=== PATIENT | male | born 1935 | race Caucasian/White ===

== ENCOUNTER 2017-04-22 13:50 | Emergency (ER) | payer OTHER ==
[2017-04-22 13:58] VITALS: TEMP 98.6; BMI 32.5
--- NOTE | 2017-04-22 14:19 | PDOC ---
Attending Attestation - Resident Resident Name: Maxine Rod - HPI HPI: 04/22/17 15:59 81 y/o male with h/o dementia seen and examined at bedside with his son who provided the majority of the history, Pt was able to communicate his needs and contributed to the conversation. Pt has a history of lower extremity edema has had carlos stockings in the past does not like them so he did not use them. Over the last month legs have become more swollen and today he thought the swelling was affecting hos ability to ambulate so he brought him to the ED. PT not sob, no calf tenderness, no c/o chest pain, - Physicial Exam PE: 04/22/17 16:04 Pt is awake and alert cooperative with exam, pt with + bs veronika cta, nl s1 s2, abd large + bs , no abdominal pain, leg veronika leg edema to just below the knees, 2 -3 + pitting edema with vascular changes bilaterally, nl pulses, o calf tenderness and nl sensation - Medical Decision Making 04/22/17 16:06 Pt with edema of legs most like secondary to venous insufficinecy and immobility , labs noted and nl, pt stable for dc home with out ot f/u with pcp, pt will be given short trial of lasix 10mg daily x 5 days and will f/u with pcp for electrolyte testing, and possibly carlos stockings, pt to return to ED for trouble breathing , sob or as needed. PT and son agree with this dc plan
--- NOTE | 2017-04-22 14:28 | PDOC ---
History of Present Illness - General Chief Complaint: Edema Stated Complaint: SWOLLEN LEGS Time Seen by Provider: 04/22/17 14:19 History Source: Patient, Family Exam Limitations: Dementia, Language Barrier - History of Present Illness Initial Comments: 04/22/17 14:49 81 year old male with PMH of progressively worsening dementia, CVA (25 years ago ), and Non-insulin dependent diabetes presenting with one month of bilateral lower extremity swelling. He has had this progressive bilateral lower extremity edema that all began one month ago in the setting of worsening ambulatory function thought to be progression of his dementia. He has tried compression stockings that have provided improvement of swelling but were cumbersome so he stopped. He does admit to shortness of breath but this has been consistent over the past year or so. Denies chest pain, palpitations, frothy sputum, productive cough, or decreased urination. He has no cardiac history and is not a hypertensive and is not on a diuretic. His diet is also quite poor, with frquent ingestion of sugary and salty foods. Denies fevers, chills, nausea, vomiting, diarrhea, or other sick symptoms. Does have occasional bowel/bladder incontinence. He lives at home wiht his and son who take care of his medications and assist him with his daily activities. His PCP is Dr. Luana Delvalle at [facility]. Past History - Past Medical History Allergies/Adverse Reactions: Allergies Allergy/AdvReac Type Severity Reaction Status Date / Time iodine Allergy Verified 04/22/17 13:52 Home Medications: Ambulatory Orders Cholecalciferol (Vitamin D3) [D-2000] 2,000 unit PO DAILY 04/22/17 Dutasteride 0.5 mg PO DAILY 04/22/17 Furosemide [Lasix] 10 mg PO DAILY #5 tablet 04/22/17 Metformin HCl [Glucophage] 1,000 mg PO BID 04/22/17 Multivit-Min/FA/Lycopen/Lutein [Centrum Silver Tablet] 1 each PO DAILY 04/22/17 Sitagliptin Phosphate [Januvia] 25 mg PO DAILY 04/22/17 Trazodone HCl 50 mg PO HS 04/22/17 CVA: Yes Dementia: Yes Diabetes: Yes (niddm) HTN: Yes Psychiatric Problems: Yes (anxeity) Other medical history: BPH - Surgical History Abdominal Surgery: Yes (ING HERNIA) - Psycho/Social/Smoking Cessation Hx Anxiety: No Suicidal Ideation: No Smoking History: Never smoked Have you smoked in the past 12 months: No Information on smoking cessation initiated: No Hx Alcohol Use: No Drug/Substance Use Hx: No Substance Use Type: None Review of Systems - Review of Systems Able to Perform ROS?: Yes Constitutional: Yes: Weakness (Weakess in LE bilaterally over the past few years.). No: Chills, Diaphoresis, Fever, Loss of Appetite HEENTM: No: Nose Congestion, Throat Pain, Throat Swelling Respiratory: Yes: Shortness of Breath, SOB with Exertion. No: Cough, Orthopnea , Stridor, Wheezing, Productive cough Cardiac (ROS): Yes: Edema. No: Chest Pain, Lightheadedness, Syncope, Chest Tightness ABD/GI: Yes: Diarrhea (Occassional diarrhea). No: Abdominal Distended, Constipated, Nausea, Poor Appetite, Vomiting : Yes: Incontinence (Bowel/ bladder incontinence) Musculoskeletal: No: Back Pain, Joint Pain Integumentary: No: Bruising, Change in Color, Erythema, Lesions Neurological: Yes: Unsteady Gait. No: Headache, Numbness, Paresthesia *Physical Exam - Vital Signs Last Vital Signs Temp Pulse Resp BP Pulse Ox 98.6 F 71 18 143/77 98 04/22/17 13:54 04/22/17 13:54 04/22/17 13:54 04/22/17 13:54 04/22/17 13:54 - Physical Exam General Appearance: Yes: Appropriately Dressed. No: Apparent Distress HEENT: positive: EOMI, ANN, Normal ENT Inspection, Normal Voice. negative: Pharyngeal Erythema, Tonsillar Exudate Neck: positive: Normal Thyroid Respiratory/Chest: positive: Lungs Clear, Normal Breath Sounds. negative: Chest Tender, Respiratory Distress, Accessory Muscle Use, Crackles, Rales, Rhonchi, Stridor, Wheezing Cardiovascular: positive: Regular Rhythm, Regular Rate, Edema (Blaterl lower extremity 2+ to upper shins), Other (Difficult to auscultate heart sounds). negative: JVD, Murmur, Gallop/S3 Gastrointestinal/Abdominal: positive: Normal Bowel Sounds, Flat, Soft. negative : Tender, Organomegaly, Pulsatile Mass Extremity: positive: Normal Capillary Refill, Pedal Edema, Swelling. negative: Tender ED Treatment Course - LABORATORY CBC & Chemistry Diagram: 04/22/17 15:00 04/22/17 15:00 Medical Decision Making - Medical Decision Making 04/22/17 15:10 88 year old with history of NIDD, dementia, and remote CVA presenting with blateral lower extremity edema x 1 month. Most likely chronic venous insufficiency exacerbated by lack of movement secondary to worsening dementia. Less likely heart failure, given lack of significant cardiac history, crackles, JVD, or apparent S3. Not likely DVT as patient has no calf tenderness and is SATing well on RA without chest pain. Furthermore, presentation of bilateral DVTs is exceedingly rare. Not likely acute coronary syndrome given normal EKG. Will get CBC, BMP, BNP, and CXR. 04/22/17 15:56 Labs significant for slight anemia at 10.9 most likely due to nutritional deficiency. BMP WNL. BNP WNL. This is most likely chronic venous insufficiency as discussed above. Will give one dose of lasix inpatient and send home on 10 PO lasix QD x 5 days with close PCP follow up this week for med adjustment and creatinine/ K+ monitoring. 04/22/17 16:03 *DC/Admit/Observation/Transfer Diagnosis at time of Disposition: Edema of both lower legs due to peripheral venous insufficiency - Discharge Dispostion Disposition: HOME Condition at time of disposition: Improved Admit: No - Prescriptions Prescriptions: Furosemide [Lasix] 10 mg PO DAILY #5 tablet - Referrals Referrals: STAFF,NOT ON [Primary Care Provider] - - Patient Instructions Printed Discharge Instructions: Chronic Venous Insufficiency Additional Instructions: You were sen for swelling in your legs. We don't believe it was due to your heart. Our blood tests did not show anything too concerning. You should use the water pill as we have prescribed for five days until you see your primary care physician. These pills can lower your potassium or cause damage to your kidneys so it is important to have your blood labs evaluated and monitor your response to the medications. Please use the compression stockings as directed. Please see your PCP within 5 days. Print Language: CROATIAN - Attestations Physician Attestion: 04/22/17 16:07 I, Dr. Maxine Rod, attest that this document has been prepared under my direction and personally reviewed by me in its entirety. I further attest, that it accurately reflects all work, treatment, procedures and medical decision -making performed by me.
[2017-04-22 15:16] LABS: MCH 28.8 pg (25.7-33.7); MCHC 32.6 g/dl (32.0-35.9); MEAN CELL VOLUME 88.3 fl (80-96); MEAN PLT VOLUME 8.2 fl (7.5-11.1); PLATELET COUNT 172 K/MM3 (134-434); RDW 13.5 % (11.9-15.9); WHITE BLOOD COUNT 4.1 K/mm3 (4.0-10.0)
[2017-04-22 15:48] LABS: ANION GAP 6 (8-16); CALCIUM 9.2 mg/dL (8.5-10.1); CO2 31 mmol/L (21-32); CREATININE 1.1 mg/dL (0.7-1.3); GLUCOSE,RANDOM 185 mg/dL (74-106)
[2017-04-22 16:13] VITALS: BP 158/86; PULSE 61
--- NOTE | 2017-04-24 13:52 | EKG ---
Test Reason : Blood Pressure : / mmHG Vent. Rate : 069 BPM Atrial Rate : 069 BPM P-R Int : 216 ms QRS Dur : 082 ms QT Int : 352 ms P-R-T Axes : 035 -09 018 degrees QTc Int : 377 ms SINUS RHYTHM WITH 1ST DEGREE A-V BLOCK CANNOT RULE OUT INFERIOR INFARCT , AGE UNDETERMINED ABNORMAL ECG NO PREVIOUS ECGS AVAILABLE Confirmed by JAKE PARIKH MD ([id number]) on 04/24/2017 1:51:37 PM Referred By: Confirmed By:JAKE PARIKH MD
== END 2017-04-22 16:58 | disposition home or self-care (01) ==
LOC: JER 13:50
DX: R60.9 Edema, unspecified (principal); I87.2 Venous insufficiency (chronic) (peripheral); I10 Essential (primary) hypertension; E11.9 Type 2 diabetes mellitus without complications; Z79.84 Long term (current) use of oral hypoglycemic drugs; F41.9 Anxiety disorder, unspecified; N40.0 Benign prostatic hyperplasia without lower urinary tract symptoms; Z86.73 Personal history of transient ischemic attack (TIA), and cerebral infarction without residual deficits
CPT/HCPCS: 36415; 71010-TC; 80048; 83880; 85027; 93005; 93010; 99283-25

== ENCOUNTER 2017-12-04 14:08 | Emergency (ER) | payer OTHER ==
[2017-12-04 14:38] VITALS: TEMP 97.4; BMI 28.2
--- NOTE | 2017-12-04 14:59 | PDOC ---
Attending Attestation - HPI HPI: 12/04/17 16:09 The patient is a 82 year old male with a significant PMH of HTN, dementia, NIDDM , and CVA (10 years ago) who presents to the emergency department with dehydration, lightheadedness, and hypotension. The history was provided by family members at bedside. As per the family, the patient has not been eating or drinking for the past few days secondary to his constipation. The patient went to the bathroom today and was noted to be lightheaded, clammy, and diaphoretic prompting the family to activate EMS. EMS notes the patient was hypotensive to the 80s systolic. The family is also stating the patient has been more confused than baseline over the past few days. The patient denies chest pain, shortness of breath, headache and dizziness. Denies fever, chills, nausea, vomit, and diarrhea. Denies dysuria, frequency, urgency and hematuria. Allergies: iodine Past surgical history: None reported. Social history: No reported alcohol, drug or cigarette use. <Dhara Zuñiga - Last Filed: 12/04/17 16:18> - Resident Resident Name: Rod Ng - ED Attending Attestation I have performed the following: I have examined & evaluated the patient, The case was reviewed & discussed with the resident, I agree w/resident's findings & plan, Exceptions are as noted - Physicial Exam PE: GENERAL: Awake, alert, and oriented to place and person, in no acute distress. HEAD: No signs of trauma EYES: PERRLA, EOMI, sclera anicteric, conjunctiva clear ENT: Auricles normal inspection, hearing grossly normal, nares patent, oropharynx clear without exudates. Dry mucosa NECK: Normal ROM, supple, no lymphadenopathy, JVD, or masses LUNGS: Breath sounds equal, clear to auscultation bilaterally. No wheezes, and no crackles HEART: Regular rate and rhythm, normal S1 and S2, no murmurs, rubs or gallops ABDOMEN: Soft, nontender, normoactive bowel sounds. No guarding, no rebound. No masses EXTREMITIES: Normal range of motion, no edema. No clubbing or cyanosis. No cords, erythema, or tenderness NEUROLOGICAL: Cranial nerves II through XII grossly intact. Normal speech. Sensation and motor intact. SKIN: Warm, Dry, normal turgor, no rashes or lesions noted. - Medical Decision Making Pt appeared dehydrated on initial evaluation, with hypotension that responded to IV fluids. Symptoms may be due to poor PO intake of solids and liquids, however, also will consider [place], sepsis. Sepsis protocol initiated in ED. Plan for admission. <Linda Ware - Last Filed: 12/05/17 11:52>
--- NOTE | 2017-12-04 15:00 | PDOC ---
History of Present Illness - General Chief Complaint: Blood Pressure Problem Stated Complaint: DEHYDRATION Time Seen by Provider: 12/04/17 14:25 - History of Present Illness Initial Comments: 12/04/17 15:40 The patient is an 82 year old male with a history of HTN, HLD, DM, dementia who presents for evaluation of dehydration, lightheadedness, hypotension. The patient is accompanied by his family who assist in providing the history. They report that the patient has been not eating and drinking well over the past few days due to constipation. They noted that he was lightheaded and very sweating when getting up from going to the bathroom today prompting them to call EMS. The patient was noted by EMS to be hypotensive to 80s systolic and he received a liter of iv fluids en rout to the ED. They family also notes that the patient has been somewhat more confused over the past few days as well. The patient has denied any fevers, chills, SOB, chest pain, nausea, vomiting, abdominal pain, or changes with urination. Past History - Past Medical History Allergies/Adverse Reactions: Allergies Allergy/AdvReac Type Severity Reaction Status Date / Time iodine Allergy Verified 12/04/17 14:35 Home Medications: Ambulatory Orders Metformin HCl [Glucophage] 1,000 mg PO BID 04/22/17 Multivit-Min/FA/Lycopen/Lutein [Centrum Silver Tablet] 1 each PO DAILY 04/22/17 Sitagliptin Phosphate [Januvia] 25 mg PO DAILY 04/22/17 Gabapentin 400 mg PO HS 12/04/17 CVA: Yes COPD: No Dementia: Yes Diabetes: Yes (niddm) HTN: Yes Psychiatric Problems: Yes (anxeity, End stage Alzheimer's) - Surgical History Abdominal Surgery: Yes (ING HERNIA) - Suicide/Smoking/Psychosocial Hx Smoking History: Never smoked Have you smoked in the past 12 months: No Information on smoking cessation initiated: No Hx Alcohol Use: No Drug/Substance Use Hx: No Substance Use Type: None Review of Systems - Review of Systems Comments:: 12/04/17 15:47 Constitutional: No fevers, chills, fatigue, malaise HEENT: No Rhinorrhea, nasal congestion, visual changes Cardiovascular: Lightheadedness. No chest pain, syncope, palpitations, Respiratory: No Cough, SOB, Hemoptysis, Gastrointestinal: Constipation. No Abdominal pain, Nausea, Vomiting, Diarrhea, Melena Genitourinary: No Dysuria, Frequency, Urgency, Hesitancy, Hematuria, Flank pain Musculoskeletal: No Myalgia, arthralgia Skin: No rashes, itching, bruising, pallor Neurologic: No Headache, Dizziness, Numbness, Weakness, or Tingling Psychiatric: Confusion. No Hallucinations. No SI or HI *Physical Exam - Vital Signs Last Vital Signs Temp Pulse Resp BP Pulse Ox 97.4 F L 66 19 88/66 97 12/04/17 14:31 12/04/17 14:31 12/04/17 14:31 12/04/17 14:31 12/04/17 14:31 - Physical Exam Comments: 12/04/17 15:48 General Appearance: Nourished. No Apparent Distress HEENT: EOMI, ANN. No Pharyngeal Erythema, Tonsillar Exudate, Tonsillar Erythema Neck: No Cervical Lymphadenopathy Respiratory/Chest: Lungs Clear, Normal Breath Sounds. No Crackles, Rales, Rhonchi, Wheezing Cardiovascular: Regular Rhythm, Regular Rate. No Murmur, Gallops, Rubs Gastrointestinal/Abdominal: Normal Bowel Sounds, Soft. No Guarding, Rebound, Tenderness Musculoskeletal: No CVA Tenderness Extremity: Normal Capillary Refill Integumentary: Normal Color, Dry, Warm Neurologic: Oriented to self only. Alert, Normal Mood/Affect, Normal Response, Heart Score/ECG Review #1 ECG reviewed & interpreted by me at: 15:49 (1st degree AV block) General ECG Interpretation: Sinus Rhythm, Normal Rate, No acute ischemic changes ED Treatment Course - LABORATORY CBC & Chemistry Diagram: 12/04/17 15:29 12/04/17 15:29 Medical Decision Making - Medical Decision Making 12/04/17 15:49 The patient is an 82 year old male with a history of HTN, HLD, DM, dementia who presents for evaluation of dehydration, lightheadedness, hypotension. Differential includes but is not limited to: Sepsis, pneumonia, uti, intracranial process, infectious, metabolic derangement. The patient's bp has improved here in the ED after fluids to 112 systolic. Given the patient's symptoms we will obtain a cbc, cmp, troponin, ekg, lactate, chest plain film, head CT to evaluate for possible etiologies. We will continue to monitor and reassess. 12/04/17 23:38 CBC, cmp, troponin, lactate are unremarkable. Chest plain film and head ct are unremarkable as read by our radiologist. However, we believe the patient requires admission for further management given his hypotension and lightheadedness episode. We discussed the case with Dr. Goldberg who accepted the patient for admission. *DC/Admit/Observation/Transfer Diagnosis at time of Disposition: Altered mental status Qualifiers: Altered mental status type: unspecified Qualified Code(s): R41.82 - Altered mental status, unspecified Hypotension Qualifiers: Hypotension type: unspecified hypotension type Qualified Code(s): I95.9 - Hypotension, unspecified - Discharge Dispostion Condition at time of disposition: Stable Admit: Yes - Referrals - Patient Instructions - Post Discharge Activity
[2017-12-04 16:26] VITALS: BP 122/61; PULSE 81
[2017-12-04 16:49] LABS: BASO % 0.6 % (0-2.0); HEMATOCRIT 37.1 % (35.4-49); HEMOGLOBIN 12.3 GM/dL (11.7-16.9); LYMPH % 18.7 % (8-40); MCH 29.5 pg (25.7-33.7); MCHC 33.1 g/dl (32.0-35.9); MEAN CELL VOLUME 89.1 fl (80-96); MEAN PLT VOLUME 8.3 fl (7.5-11.1); MONO % 6.6 % (3.8-10.2); NEUT % 72.1 % (42.8-82.8); PLATELET COUNT 190 K/MM3 (134-434); RBC 4.17 M/mm3 (4.00-5.60); RDW 13.5 % (11.9-15.9); WHITE BLOOD COUNT 5.7 K/mm3 (4.0-10.0)
[2017-12-04 16:54] LABS: VENOUS PH 7.35 (7.32-7.42)
[2017-12-04 16:55] LABS: VENOUS PC02 48.2 mmHg (38-52); VENOUS PO2 34.5 mmHg (28-48)
[2017-12-04 17:14] LABS: INR 1.08 (0.82-1.09); PROTHROMBIN TIME (PATIENT) 12.2 SEC (9.98-11.88)
[2017-12-04 17:17] LABS: ACTIVATED PTT 33.2 SECONDS (26.9-34.4)
[2017-12-04 17:23] LABS: ALBUMIN 3.1 g/dl (3.4-5.0); ANION GAP 8 (8-16); BILIRUBIN,TOTAL 0.3 mg/dL (0.2-1.0); BLOOD UREA NITROGEN 26 mg/dL (7-18); CALCIUM 8.6 mg/dL (8.5-10.1); CHLORIDE 107 mmol/L (98-107); CO2 26 mmol/L (21-32); CREATININE 1.3 mg/dL (0.7-1.3); GLUCOSE,RANDOM 192 mg/dL (74-106); POTASSIUM 4.5 mmol/L (3.5-5.1); SGOT/AST 10 U/L (15-37); SGPT/ALT 11 U/L (12-78); SODIUM 141 mmol/L (136-145); TOT PROT 6.9 g/dl (6.4-8.2)
[2017-12-04 17:26] LABS: ALK PHOS 93 U/L (45-117)
--- NOTE | 2017-12-04 20:34 | HP ---
Admitting History and Physical - Primary Care Physician PCP: Mariaa Goldberg - Admission Chief Complaint: lightheaded History of Present Illness: -82 year old male with a history of HTN, HLD, DM, dementia who presents for evaluation of dehydration, lightheadedness, hypotension. The patient is accompanied by his family who assist in providing the history. They report that the patient has been not eating and drinking well over the past few days due to constipation. They noted that he was lightheaded and very sweating when getting up from going to the bathroom today prompting them to call EMS. The patient was noted by EMS to be hypotensive to 80s systolic and he received a liter of iv fluids en rout to the ED. They family also notes that the patient has been somewhat more confused over the past few days as well. The patient has denied any fevers, chills, SOB, chest pain, nausea, vomiting, abdominal pain , or changes with urination. - Smoking History Smoking history: Never smoked Have you smoked in the past 12 months: No - Alcohol/Substance Use Hx Alcohol Use: No Home Medications - Allergies Allergies/Adverse Reactions: Allergies Allergy/AdvReac Type Severity Reaction Status Date / Time iodine Allergy Verified 12/04/17 14:35 - Home Medications Home Medications: Ambulatory Orders Metformin HCl [Glucophage] 1,000 mg PO BID 04/22/17 Multivit-Min/FA/Lycopen/Lutein [Centrum Silver Tablet] 1 each PO DAILY 04/22/17 Sitagliptin Phosphate [Januvia] 25 mg PO DAILY 04/22/17 Gabapentin 400 mg PO HS 12/04/17 Physical Examination Vital Signs: Vital Signs Temperature 97.4 F L 12/04/17 14:31 Pulse Rate 81 12/04/17 16:26 Respiratory Rate 18 12/04/17 16:26 Blood Pressure 122/61 12/04/17 16:26 O2 Sat by Pulse Oximetry (%) 98 12/04/17 16:26 Constitutional: Yes: No Distress HENT: Yes: Atraumatic (/) Cardiovascular: Yes: Regular Rate and Rhythm Respiratory: Yes: CTA Bilaterally Gastrointestinal: Yes: Normal Bowel Sounds Extremities: Yes: WNL Neurological: Yes: Alert, Oriented Labs: CBC, BMP 12/04/17 15:29 12/04/17 15:29 Problem List - Problems (1) Altered mental status Code(s): R41.82 - ALTERED MENTAL STATUS, UNSPECIFIED Qualifiers: Altered mental status type: unspecified Qualified Code(s): R41.82 - Altered mental status, unspecified Assessment/Plan Laboratory Tests 12/04/17 12/04/17 12/04/17 15:29 15:29 15:29 WBC 5.7 D RBC 4.17 Hgb 12.3 D Hct 37.1 MCV 89.1 MCH 29.5 MCHC 33.1 RDW 13.5 Plt Count 190 MPV 8.3 Neutrophils % 72.1 Lymphocytes % 18.7 Monocytes % 6.6 Eosinophils % 2.0 Basophils % 0.6 PT with INR INR PTT (Actin FS) VBG pH 7.35 POC VBG pCO2 48.2 POC VBG pO2 34.5 Mixed VBG HCO3 25.9 H Sodium 141 Potassium 4.5 Chloride 107 Carbon Dioxide 26 Anion Gap 8 BUN 26 H D Creatinine 1.3 Creat Clearance w eGFR 52.72 Random Glucose 192 H Lactic Acid Calcium 8.6 Total Bilirubin 0.3 AST 10 L ALT 11 L Alkaline Phosphatase 93 Creatine Kinase 43 Troponin I < 0.02 Total Protein 6.9 Albumin 3.1 L Blood Type Antibody Screen 12/04/17 12/04/17 12/04/17 15:29 16:40 16:40 WBC RBC Hgb Hct MCV MCH MCHC RDW Plt Count MPV Neutrophils % Lymphocytes % Monocytes % Eosinophils % Basophils % PT with INR 12.20 H INR 1.08 PTT (Actin FS) 33.2 VBG pH POC VBG pCO2 POC VBG pO2 Mixed VBG HCO3 Sodium Potassium Chloride Carbon Dioxide Anion Gap BUN Creatinine Creat Clearance w eGFR Random Glucose Lactic Acid 1.5 Calcium Total Bilirubin AST ALT Alkaline Phosphatase Creatine Kinase Troponin I Total Protein Albumin Blood Type A POSITIVE Antibody Screen Negative
[2017-12-04] MEDS ORDERED: GABAPENTIN 400 MG CAPSULE (FP) PO SCH (22:00)
[2017-12-05] MEDS ORDERED: sitaGLIPtin PHOSPHATE 25 MG TABLET (FP) PO SCH (07:00)
[2017-12-05] MEDS ORDERED: metFORMIN HCL 500 MG TABLET (FP) PO SCH (07:00)
--- NOTE | 2017-12-05 08:54 | EKG ---
Test Reason : Blood Pressure : / mmHG Vent. Rate : 062 BPM Atrial Rate : 062 BPM P-R Int : 218 ms QRS Dur : 080 ms QT Int : 384 ms P-R-T Axes : 034 -21 025 degrees QTc Int : 389 ms SINUS RHYTHM WITH 1ST DEGREE A-V BLOCK OTHERWISE NORMAL ECG WHEN COMPARED WITH ECG OF 22-APR-2017 14:09, NO SIGNIFICANT CHANGE WAS FOUND Confirmed by Guido Dorman MD ([id number]) on 12/05/2017 8:54:11 AM Referred By: Confirmed By:Guido Dorman MD
== END 2017-12-05 04:30 | disposition left against medical advice (07) ==
LOC: JER 14:08 → UNDOADMOB 18:59 → INTOOBSV 18:59 → JERBED 18:59 → JER 12-05 04:30
DX: R41.82 Altered mental status, unspecified (principal); I95.9 Hypotension, unspecified; E86.0 Dehydration; I10 Essential (primary) hypertension; G30.9 Alzheimer's disease, unspecified; F02.80 Dementia in other diseases classified elsewhere, unspecified severity, without behavioral disturbance, psychotic disturbance, mood disturbance, and anxiety; Z86.73 Personal history of transient ischemic attack (TIA), and cerebral infarction without residual deficits
CPT/HCPCS: 36415; 70450-TC; 71045-TC-FY; 80053; 82550; 82803; 82962; 83605; 84484; 85025; 85610; 85730; 86850; 86900; 86901; 87040; 93005; 93010; 99285-25

== ENCOUNTER 2018-02-24 01:02 | Emergency (ER) | payer OTHER ==
[2018-02-24 05:13] VITALS: BMI 25.4
--- NOTE | 2018-02-24 05:22 | PDOC ---
History of Present Illness - General Stated Complaint: DIFFICULTY SWALLOWING,PAIN RT SIDE FACE Time Seen by Provider: 02/24/18 04:27 History Source: Patient, Family Exam Limitations: Dementia - History of Present Illness Initial Comments: 02/24/18 05:17 Patient is an 82M with history of dementia, HTN, HLD, DM here today complaining of difficulty swallowing and pain in his throat. Patient is capable of only very limited communication due to his dementia. Family reports that he has been grabbing both sides of his jaw after eating/drinking and is taking less PO recently. Family also reports that his mental status has declined, especially over the past few weeks, with more strange behavior. Denies fevers, chills, vomiting. Family does not believe that patient would be able to report chest pain or abdominal pain reliably. Family denies any focal weakness. Past History - Past Medical History Allergies/Adverse Reactions: Allergies Allergy/AdvReac Type Severity Reaction Status Date / Time iodine Allergy Verified 02/24/18 04:41 Home Medications: Ambulatory Orders Metformin HCl [Glucophage] 1,000 mg PO BID 04/22/17 Multivit-Min/FA/Lycopen/Lutein [Centrum Silver Tablet] 1 each PO DAILY 04/22/17 Sitagliptin Phosphate [Januvia] 25 mg PO DAILY 04/22/17 Gabapentin 400 mg PO HS 12/04/17 CVA: Yes COPD: No Dementia: Yes Diabetes: Yes (niddm) HTN: Yes Psychiatric Problems: Yes (anxeity, End stage Alzheimer's) - Surgical History Abdominal Surgery: Yes (ING HERNIA) - Suicide/Smoking/Psychosocial Hx Smoking History: Never smoked Have you smoked in the past 12 months: No Information on smoking cessation initiated: No Hx Alcohol Use: No Drug/Substance Use Hx: No Substance Use Type: None Review of Systems - Review of Systems Able to Perform ROS?: No (2/2 dementia) *Physical Exam - Vital Signs Last Vital Signs Temp Pulse Resp BP Pulse Ox 97.4 F L 67 18 157/77 98 02/24/18 02:00 02/24/18 02:00 02/24/18 02:00 02/24/18 02:00 02/24/18 02:00 - Physical Exam Comments: 02/24/18 05:22 GENERAL: Awake, alert, sitting up in wheelchair. HEAD: No signs of trauma, normocephalic, atraumatic EYES: PERRLA, EOMI, sclera anicteric, conjunctiva clear ENT: Auricles normal inspection, hearing grossly normal, nares patent, normal TMs, nontender mastoids. Moist mucosa, no infection visualized in oropharynx, limited by patient biting. NECK: Normal ROM, supple, no lymphadenopathy, JVD, or masses LUNGS: No distress, speaks full sentences, clear to auscultation bilaterally HEART: Regular rate and rhythm, normal S1 and S2, no murmurs, rubs or gallops, peripheral pulses normal and equal bilaterally. ABDOMEN: Soft, nontender, normoactive bowel sounds. No guarding, no rebound. No masses EXTREMITIES: Normal inspection, Normal range of motion, no edema. No clubbing or cyanosis. NEUROLOGICAL: Cranial nerves II through XII grossly intact. Normal speech, no focal sensorimotor deficits SKIN: Warm, Dry, normal turgor, no rashes or lesions noted. ED Treatment Course - LABORATORY CBC & Chemistry Diagram: 02/24/18 05:29 02/24/18 05:29 - RADIOLOGY Radiology Studies Ordered: Category Date Time Status HEAD CT WITHOUT CONTRAST [CT] Stat CT Scan 02/24/18 04:47 Ordered SOFT TISSUE NECK CT W/O CONTR [CT] Stat CT Scan 02/24/18 04:47 Ordered CHEST X-RAY PORTABLE* [RAD] Stat Radiology 02/24/18 04:47 Ordered Medical Decision Making - Medical Decision Making 02/24/18 05:24 Patient is 82M with history of dementia, DM, HLD, HTN here today with possible AMS and possible throat pain. Vital signs stable. DDx includes, but is not limited to: aspiration, dementia progression, UTI, pneumonia. Will do broad workup due to inability to gather proper history. Will do cbc, cmp, trop, ekg, cxr, head ct, soft tissue neck ct. 02/24/18 06:17 EKG shows sinus rhythm with 1st degree AV block (SD intervals of 214). No st elevation or depression. No significant t wave abnormalities. Normal QRS/QTc intervals. CBC, CMP unremarkable. Troponin undetectable. CTs and UA pending. *DC/Admit/Observation/Transfer Diagnosis at time of Disposition: Altered mental status - Discharge Dispostion Condition at time of disposition: Fair - Referrals Referrals: ON STAFF,NOT [Primary Care Provider] - - Patient Instructions - Post Discharge Activity
[2018-02-24 05:38] LABS: HEMOGLOBIN 12.6 GM/dL (11.7-16.9); MCH 30.4 pg (25.7-33.7); MEAN CELL VOLUME 89.1 fl (80-96); MEAN PLT VOLUME 8.2 fl (7.5-11.1); PLATELET COUNT 209 K/MM3 (134-434); RBC 4.15 M/mm3 (4.00-5.60); RDW 13.9 % (11.9-15.9); WHITE BLOOD COUNT 5.6 K/mm3 (4.0-10.0)
[2018-02-24 06:02] LABS: ALBUMIN 3.4 g/dl (3.4-5.0); ANION GAP 3 (8-16); BILIRUBIN,TOTAL 0.2 mg/dL (0.2-1.0); BLOOD UREA NITROGEN 19 mg/dL (7-18); CALCIUM 8.9 mg/dL (8.5-10.1); CHLORIDE 108 mmol/L (98-107); CO2 30 mmol/L (21-32); CREATININE 1.1 mg/dL (0.7-1.3); GLUCOSE,RANDOM 170 mg/dL (74-106); POTASSIUM 4.5 mmol/L (3.5-5.1); SGOT/AST 8 U/L (15-37); SGPT/ALT 10 U/L (12-78); SODIUM 141 mmol/L (136-145); TOT PROT 7.2 g/dl (6.4-8.2)
[2018-02-24 06:04] LABS: ALK PHOS 82 U/L (45-117)
--- NOTE | 2018-02-24 06:59 | PDOC ---
Attending Attestation - Resident Resident Name: Hi Smith - ED Attending Attestation I have performed the following: I have examined & evaluated the patient, The case was reviewed & discussed with the resident, I agree w/resident's findings & plan - HPI HPI: 02/24/18 06:58 Pt is a demented male with difficulty swallowing and neck pain. Family comes saying that he has decreased oral intake. Labs pending. UA pending. - Physicial Exam PE: 02/24/18 07:00 Agree with resident exam. - Medical Decision Making 02/24/18 07:00 Pt will be signed out to the day ER doc.
--- NOTE | 2018-02-24 07:02 | PDOC ---
*Physical Exam - Vital Signs Last Vital Signs Temp Pulse Resp BP Pulse Ox 97.4 F L 67 18 157/77 98 02/24/18 02:00 02/24/18 02:00 02/24/18 02:00 02/24/18 02:00 02/24/18 02:00 ED Treatment Course - LABORATORY CBC & Chemistry Diagram: 02/24/18 05:29 02/24/18 05:29 - ADDITIONAL ORDERS Additional order review: Laboratory Results 02/24/18 05:29 Sodium 141 Potassium 4.5 Chloride 108 H Carbon Dioxide 30 Anion Gap 3 L BUN 19 H D Creatinine 1.1 Creat Clearance w eGFR > 60 Random Glucose 170 H Calcium 8.9 Total Bilirubin 0.2 D AST 8 L ALT 10 L Alkaline Phosphatase 82 Creatine Kinase 30 L Troponin I < 0.02 Total Protein 7.2 Albumin 3.4 02/24/18 05:29 RBC 4.15 MCV 89.1 MCHC 34.0 RDW 13.9 MPV 8.2 Medical Decision Making - Medical Decision Making 02/24/18 07:02 Care taken over from Dr. Smith. 02/24/18 09:[address] negative. Pending neck CT. Patient family requesting signout AMA for patient. Patient at baseline per family. Labs grossly unconcerning as below. Neck CT sent to imaging paper cone maker. Family will return as needed pending CT read for further evaluation. Patient signed out AMA. Laboratory Results - last 24 hr 02/24/18 02/24/18 05:29 05:29 WBC 5.6 RBC 4.15 Hgb 12.6 Hct 37.0 MCV 89.1 MCH 30.4 MCHC 34.0 RDW 13.9 Plt Count 209 MPV 8.2 Sodium 141 Potassium 4.5 Chloride 108 H Carbon Dioxide 30 Anion Gap 3 L BUN 19 H D Creatinine 1.1 Creat Clearance w eGFR > 60 Random Glucose 170 H Calcium 8.9 Total Bilirubin 0.2 D AST 8 L ALT 10 L Alkaline Phosphatase 82 Creatine Kinase 30 L Troponin I < 0.02 Total Protein 7.2 Albumin 3.4 *DC/Admit/Observation/Transfer Diagnosis at time of Disposition: Throat pain - Discharge Dispostion Disposition: AGAINST MEDICAL ADVICE Condition at time of disposition: Fair - Referrals Referrals: ON STAFF,NOT [Primary Care Provider] - - Patient Instructions Additional Instructions: You signed out today against medical advice. Please return to ED if any change in status, fever, chills, pain, or other concerning symptoms. Follow-up with ENT at scheduled appointment tomorrow as discussed. - Post Discharge Activity
--- NOTE | 2018-02-24 09:21 | EKG ---
Test Reason : Blood Pressure : / mmHG Vent. Rate : 064 BPM Atrial Rate : 064 BPM P-R Int : 214 ms QRS Dur : 082 ms QT Int : 380 ms P-R-T Axes : 063 015 045 degrees QTc Int : 392 ms SINUS RHYTHM WITH 1ST DEGREE A-V BLOCK OTHERWISE NORMAL ECG WHEN COMPARED WITH ECG OF 04-DEC-2017 14:37, T WAVE AMPLITUDE HAS INCREASED IN LATERAL LEADS Confirmed by KARLEY WEST, SHIRLEY ([id number]) on 02/24/2018 9:21:17 AM Referred By: Confirmed By:SHIRLEY CRANDALL MD
[2018-02-24 09:43] VITALS: BP 145/87; PULSE 78; TEMP 98
== END 2018-02-24 09:30 | disposition left against medical advice (07) ==
LOC: JER 01:02
DX: R07.0 Pain in throat (principal); G30.8 Other Alzheimer's disease; F02.80 Dementia in other diseases classified elsewhere, unspecified severity, without behavioral disturbance, psychotic disturbance, mood disturbance, and anxiety; I10 Essential (primary) hypertension; E11.9 Type 2 diabetes mellitus without complications; Z79.84 Long term (current) use of oral hypoglycemic drugs; E78.5 Hyperlipidemia, unspecified
CPT/HCPCS: 36415; 70450-TC; 70490-TC; 71045-TC-FY; 80053; 82550; 84484; 85027; 93005; 93010; 99282-25